=== PATIENT | male | born 1960 | race Caucasian/White ===

== ENCOUNTER 2018-09-01 03:39 | Emergency (ER) | payer BC, OTHER ==
--- NOTE | 2018-09-01 03:40 | PDOC ---
History of Present Illness - General Chief Complaint: Chest Pain Stated Complaint: CHEST PAIN Time Seen by Provider: 09/01/18 03:40 - History of Present Illness Initial Comments: 09/01/18 04:08 Chief complaint: Chest pain History of present illness: 58 years old past medical history significant for mild thyroid disease presents to the ED with one-day history of left-sided chest discomfort Patient describes the pain as sharp left sided does not radiate no associated diaphoresis nausea vomiting. Pain is not exertional pain started yesterday during the day mild to moderate work from sleep approximately 1 hour prior to presentation to the ED pain was more severe more significant and patient decided to come to the emergency department for further evaluation. No history of similar. Recent travel but just [employer] no long plane rides no long train rides no history of DVTs no hemoptysis no leg swelling no family history of coronary artery disease, no history of tobacco use. Past History - Past Medical History Allergies/Adverse Reactions: Allergies Allergy/AdvReac Type Severity Reaction Status Date / Time Penicillins Allergy Severe severe rash Verified 05/23/15 17:49 Anemia: No Asthma: No Cancer: Yes (THYROID) Cardiac Disorders: No CVA: No COPD: No CHF: No Dementia: No Diabetes: No GI Disorders: No Disorders: No HTN: No Hypercholesterolemia: No Liver Disease: No Seizures: No Thyroid Disease: Yes (THYROID CANCER) - Surgical History Abdominal Surgery: No Appendectomy: No Cardiac Surgery: No Cholecystectomy: No Lung Surgery: No Neurologic Surgery: No Orthopedic Surgery: Yes (BILATERAL KNEE ARTHROSCOPIC SURGERY) - Suicide/Smoking/Psychosocial Hx Smoking History: Never smoked Have you smoked in the past 12 months: No Hx Alcohol Use: Yes Drug/Substance Use Hx: No Substance Use Type: Alcohol Hx Substance Use Treatment: No Review of Systems - Review of Systems Comments:: 09/01/18 04:09 ROS: A complete review of 10 out of 10 review of systems is taken and is negative apart from what is previously mentioned below and in the HPI. *Physical Exam - Physical Exam Comments: 09/01/18 04:09 Vitals: Triage Vital signs reviewed General Appearance: no acute distress, well nourished well developed, Head: Atraumatic, Neck: Supple;No Nucal rigidity Chest Wall: Nontender Cardiac: Regular rate and rhythym, no murmurs, no rubs, no gallops, Lungs: Clear to auscultation bilateral, good air movement bilaterally, Abdomen: Soft, non distended, normal bowel sounds, non tender to palpation Extremities: Full range of motion to all extremities, no cyanosis, clubbing, or edema Skin: Warm and dry, no rashes or lesions, no rash, no petechiae Psych: normal mood, normal affect Heart Score/ECG Review - History History: Slightly suspicious - Electrocardiogram EKG: Normal - Age Age: 45-65 - Risk Factors Based on the list above the patient has:: No risk factors known - ECG Impressions Comment:: 09/01/18 04:10 EKG performed at 3:41 AM demonstrates normal sinus rhythm no ST elevations or T- wave inversions. Interpreted by me. *DC/Admit/Observation/Transfer - Discharge Dispostion Condition at time of disposition: Good - Referrals Referrals: Tai Strickland MD [Primary Care Provider] - - Patient Instructions - Post Discharge Activity
[2018-09-01 03:45] VITALS: TEMP 97.7; BMI 27.3
[2018-09-01 04:35] LABS: EOS % 6.2 % (0-4.5); HEMATOCRIT 42.5 % (35.4-49); HEMOGLOBIN 14.4 GM/dL (11.7-16.9); LYMPH % 39.3 % (8-40); MCH 30.2 pg (25.7-33.7); MCHC 33.7 g/dl (32.0-35.9); MEAN CELL VOLUME 89.5 fl (80-96); MEAN PLT VOLUME 8.1 fl (7.5-11.1); MONO % 7.2 % (3.8-10.2); NEUT % 46.3 % (42.8-82.8); PLATELET COUNT 184 K/MM3 (134-434); RBC 4.75 M/mm3 (4.00-5.60); RDW 13.3 % (11.9-15.9); WHITE BLOOD COUNT 5.2 K/mm3 (4.0-10.0)
[2018-09-01 05:10] LABS: ALBUMIN 3.5 g/dl (3.4-5.0); ALK PHOS 69 U/L (45-117); ANION GAP 7 MMOL/L (8-16); BILIRUBIN,TOTAL 0.3 mg/dL (0.2-1); BLOOD UREA NITROGEN 15 mg/dL (7-18); CALCIUM 8.3 mg/dL (8.5-10.1); CHLORIDE 107 mmol/L (98-107); CO2 25 mmol/L (21-32); CREATININE 0.8 mg/dL (0.55-1.3); GLUCOSE,RANDOM 103 mg/dL (74-106); POTASSIUM 4.1 mmol/L (3.5-5.1); SGOT/AST 25 U/L (15-37); SGPT/ALT 31 U/L (13-61); SODIUM 139 mmol/L (136-145)
[2018-09-01] MEDS ORDERED: ACETAMINOPHEN 325 MG TABLET (FP) PO ONE (07:26)
--- NOTE | 2018-09-01 07:28 | PDOC ---
*Physical Exam - Vital Signs Last Vital Signs Temp Pulse Resp BP Pulse Ox 97.7 F 62 14 138/90 100 09/01/18 03:41 09/01/18 03:41 09/01/18 03:41 09/01/18 03:41 09/01/18 03:41 ED Treatment Course - LABORATORY CBC & Chemistry Diagram: 09/01/18 03:45 09/01/18 03:45 - ADDITIONAL ORDERS Additional order review: Laboratory Results 09/01/18 09/01/18 09/01/18 04:00 04:00 03:45 Sodium 139 Potassium 4.1 Chloride 107 Carbon Dioxide 25 Anion Gap 7 L BUN 15 Creatinine 0.8 Creat Clearance w eGFR 100.00 Random Glucose 103 Calcium 8.3 L Total Bilirubin 0.3 AST 25 ALT 31 Alkaline Phosphatase 69 Troponin I < 0.02 Total Protein 7.0 Albumin 3.5 TSH 0.69 Urine Color Yellow Urine Appearance Clear Urine pH 6.0 Urine Protein Negative Urine Glucose (UA) Negative Urine Ketones Negative Urine Blood Negative Urine Nitrite Negative Urine Bilirubin Negative Urine Urobilinogen 0.2 Ur Leukocyte Esterase Negative 09/01/18 03:45 RBC 4.75 MCV 89.5 MCHC 33.7 RDW 13.3 MPV 8.1 Neutrophils % 46.3 Lymphocytes % 39.3 Monocytes % 7.2 Eosinophils % 6.2 H Basophils % 1.0 Medical Decision Making - Medical Decision Making 09/01/18 07:25 58y M hx of thyroid disease presents with 1 day of chest discomfort. Pt notes the pain as a left sided, nonradiating chest pain that is sharp and consatant without any alleviation or exacerbating features. The patient ntose the pain started when he was watching tv last night, and was very mild, approx 1/10 - this morning when he woke up, it was a 4/10. He has no associated sob, hemoptysis, leg swelling, leg pain, [place], worsening with movement. He excercises regularly and just had a golf trip to [place] and never has has this pain while doing eliptical or when playing golf in the past. 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 I answered all of the patient's questions. The patient was satisfied with the care received and felt comfortable with the discharge plan and treatment plan. The patient will call their primary care physician within 24 hours to arrange follow-up and will return to the Emergency Department with any new, persistent or worsening symptoms. *DC/Admit/Observation/Transfer Diagnosis at time of Disposition: Chest pain Qualifiers: Chest pain type: unspecified Qualified Code(s): R07.9 - Chest pain, unspecified - Discharge Dispostion Disposition: HOME Condition at time of disposition: Good Decision to Admit order: No - Referrals Referrals: Tai Strickland MD [Primary Care Provider] - - Patient Instructions Printed Discharge Instructions: DI for Atypical Chest Pain Additional Instructions: Return to the emergency department immediately with ANY new, persistent or worsening symptoms. 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 He have worsening symptoms, shortness of breath , feeling nauseous or sweaty or any other concerns or return to the emergency department immediately. Print Language: SENEGALESE - Post Discharge Activity
[2018-09-01 10:42] VITALS: BP 130/81; PULSE 60
--- NOTE | 2018-09-01 15:36 | EKG ---
Test Reason : Blood Pressure : / mmHG Vent. Rate : 060 BPM Atrial Rate : 060 BPM P-R Int : 160 ms QRS Dur : 100 ms QT Int : 422 ms P-R-T Axes : 028 030 016 degrees QTc Int : 422 ms NORMAL SINUS RHYTHM NORMAL ECG NO PREVIOUS ECGS AVAILABLE Confirmed by VIVIEN VALERA MD ([id number]) on 09/01/2018 3:36:08 PM Referred By: MD KANG Confirmed By:VIVIEN VALERA MD
== END 2018-09-01 10:33 | disposition home or self-care (01) ==
LOC: FER 03:39
DX: R07.9 Chest pain, unspecified (principal); E07.9 Disorder of thyroid, unspecified
CPT/HCPCS: 36415; 71045-TC-FY; 80053; 81003; 84443; 84484; 85025; 93005; 99284-25